=== PATIENT | female | born 1935 | race Caucasian/White ===

== ENCOUNTER 2018-06-02 03:33 | Inpatient (IN) ==
[2018-06-02] MEDS ORDERED: hydrALAZINE 20 MG/1 ML VIAL IV STA (04:20)
[2018-06-02 04:56] LABS: Basophils % 0.2 % (0.0-0.8); Hematocrit 38.7 VOL% (35.7-47.0); Hemoglobin 12.1 GM/DL (12.0-16.0); Immature Granulocytes % 0.2 %; Immature Granulocytes Absolute 0.02 #; Lymphocytes # 1.1 10*3/uL (1.4-4.0); Lymphocytes % 13.9 % (21.3-54.2); Mean Corpuscular HGB Conc 31.3 GM/DL (32-36); Mean Corpuscular Hemoglobin 25 PG (27-34); Mean Corpuscular Volume 80.3 FL (87-102); Mean Platelet Volume 10.8 FL (9.6-12.0); Monocytes # 0.3 10*3/uL (0.11-0.8); Monocytes % 3.2 % (1.7-12.7); Neutrophils # 6.7 10*3/uL (1.4-7.4); Neutrophils % 82.5 % (38.7-73.9); Platelet Count 149 T/CUMM (130-400); Red Blood Count 4.82 MC/CUMM (3.8-5.5); Red Cell Distribution Width 16.3 % (9.3-17.3); White Blood Count 8.2 T/CUMM (4-12)
[2018-06-02 05:05] LABS: Albumin 3.4 G/DL (3.4-5.0); Bilirubin,Total 0.4 MG/DL (0.2-1.0); Calcium 9.2 MG/DL (8.5-10.1); Osmolality,Calculated 273.8 MOS/KG (273-304); Potassium 4.1 MMOL/L (3.5-5.1); Total Protein 7.9 G/DL (6.4-8.3)
[2018-06-02 05:30] LABS: Lactic Acid 1.1 MMOL/L (0.4-2.0)
[2018-06-02] MEDS: ONDANSETRON 4 MG/2 ML VIAL IV PRN ×2 (05:59→18:31)
[2018-06-02] MEDS: DEXTROSE 5% LACTATED RINGERS 1,000 ML IV SCH ×3 (06:32→23:00)
[2018-06-03] MEDS ORDERED: hydrALAZINE 20 MG/1 ML VIAL ONE (07:39)
[2018-06-03] MEDS ORDERED: ceFAZolin 1,000 MG VIAL ONE (08:36)
[2018-06-03] MEDS ORDERED: BUPIVACAINE MPF 0.25% 30 ML VIAL ONE (09:30)
[2018-06-03] MEDS ORDERED: SUGAMMADEX 200 MG/2 ML VIAL IV ONE (09:31)
[2018-06-03] MEDS ORDERED: fentaNYL 100 MCG/2 ML VIAL ONE (09:52)
[2018-06-03] MEDS ORDERED: KETOROLAC 30 MG/1 ML VIAL ONE (09:54)
[2018-06-03] MEDS ORDERED: PROPOFOL 200 MG/20 ML VIAL IV ONE (09:54)
[2018-06-03] MEDS ORDERED: SEVOFLURANE 1 UNIT/15 MINUTE INH ONE (09:54)
[2018-06-03] MEDS ORDERED: ONDANSETRON 4 MG/2 ML VIAL ONE (09:54)
[2018-06-03] MEDS ORDERED: PHENYLEPHRINE 10 MG/1 ML VIAL IV ONE (09:54)
[2018-06-03] MEDS ORDERED: SUCCINYLCHOLINE 200 MG/10 ML VIAL ONE (09:55)
[2018-06-03] MEDS ORDERED: ROCURONIUM 100 MG/10 ML VIAL IV ONE (09:55)
[2018-06-03] MEDS ORDERED: ACETAMINOPHEN 1,000 MG/100 ML VIAL IV ONE (09:55)
[2018-06-03] MEDS ORDERED: GLYCOPYRROLATE 0.4 MG/2 ML VIAL ONE (09:55)
[2018-06-03] MEDS ORDERED: PHENYLEPHRINE 1 MG/10 ML SYRINGE IV ONE (09:55)
[2018-06-03] MEDS: DEXTROSE 5% LACTATED RINGERS 1,000 ML IV SCH ×2 (10:44→20:08)
[2018-06-03] MEDS: amLODIPine 5 MG TABLET PO SCH (10:44)
[2018-06-03] MEDS: DONEPEZIL 10 MG TABLET PO SCH (10:44)
[2018-06-04] MEDS: amLODIPine 5 MG TABLET PO SCH (08:58)
[2018-06-04] MEDS: DONEPEZIL 10 MG TABLET PO SCH (08:58)
[2018-06-04 10:05] LABS: Basophils % 0.4 % (0.0-0.8); Eosinophils # 0.1 10*3/uL (0.0-0.87); Eosinophils % 1.1 % (0.00-10.9); Hematocrit 31.4 VOL% (35.7-47.0); Immature Granulocytes % 0.5 %; Immature Granulocytes Absolute 0.04 #; Lymphocytes # 1.4 10*3/uL (1.4-4.0); Mean Corpuscular HGB Conc 31.5 GM/DL (32-36); Mean Corpuscular Hemoglobin 26 PG (27-34); Mean Corpuscular Volume 81.8 FL (87-102); Mean Platelet Volume 11.5 FL (9.6-12.0); Monocytes # 0.8 10*3/uL (0.11-0.8); Monocytes % 10.7 % (1.7-12.7); Neutrophils % 68.3 % (38.7-73.9); Red Cell Distribution Width 16.7 % (9.3-17.3); White Blood Count 7.3 T/CUMM (4-12)
[2018-06-04 10:07] LABS: Hemoglobin 9.9 GM/DL (12.0-16.0); Platelet Count 100 T/CUMM (130-400); Red Blood Count 3.84 MC/CUMM (3.8-5.5)
[2018-06-04 10:22] LABS: Calcium 7.8 MG/DL (8.5-10.1); Osmolality,Calculated 280.3 MOS/KG (273-304); Potassium 3.4 MMOL/L (3.5-5.1)
[2018-06-04 10:39] LABS: Anisocytosis 1+; Platelet Estimate Adequate
[2018-06-04] MEDS: DEXTROSE 5% NACL 0.45% 1,000 ML IV SCH (19:30)
[2018-06-05] MEDS: DEXTROSE 5% NACL 0.45% 1,000 ML IV SCH (03:38)
[2018-06-05 05:39] LABS: Basophils % 0.3 % (0.0-0.8); Eosinophils # 0.2 10*3/uL (0.0-0.87); Eosinophils % 2.2 % (0.00-10.9); Hematocrit 30.4 VOL% (35.7-47.0); Hemoglobin 9.7 GM/DL (12.0-16.0); Immature Granulocytes % 0.3 %; Immature Granulocytes Absolute 0.02 #; Lymphocytes # 1.3 10*3/uL (1.4-4.0); Lymphocytes % 18.6 % (21.3-54.2); Mean Corpuscular HGB Conc 31.9 GM/DL (32-36); Mean Corpuscular Hemoglobin 26 PG (27-34); Mean Corpuscular Volume 80.6 FL (87-102); Mean Platelet Volume 10.8 FL (9.6-12.0); Monocytes # 0.8 10*3/uL (0.11-0.8); Neutrophils # 4.8 10*3/uL (1.4-7.4); Neutrophils % 67.6 % (38.7-73.9); Platelet Count 133 T/CUMM (130-400); Red Blood Count 3.77 MC/CUMM (3.8-5.5); Red Cell Distribution Width 16.2 % (9.3-17.3); White Blood Count 7.2 T/CUMM (4-12)
[2018-06-05 05:43] LABS: Calcium 7.8 MG/DL (8.5-10.1); Osmolality,Calculated 275.5 MOS/KG (273-304); Potassium 3.1 MMOL/L (3.5-5.1)
[2018-06-05 05:54] LABS: Platelet Estimate Adequate
[2018-06-05 05:55] LABS: Polychromasia Few; Target Cells Few
[2018-06-05] MEDS: DONEPEZIL 10 MG TABLET PO SCH (14:20)
[2018-06-05] MEDS: amLODIPine 5 MG TABLET PO SCH (14:20)
[2018-06-05] MEDS: DEXT 5% NACL 0.45% KCL 20 MEQ 20 MEQ/1,000 ML BAG IV SCH (14:22)
[2018-06-05 15:28] LABS: Apearance,Urine CLEAR (Clear); Bacteria,Urine Occasional /HPF (Few); Bilirubin,Urine Negative (Negative); Blood, Urine Negative (Negative); Glucose,Urine (UA) Negative (Negative); Hyaline Casts,Urine 1 /LPF (0-3); Ketones,Urine Negative (Negative); Nitrite,Urine Negative (Negative); Protein,Urine Negative; RBC,Urine <1 /HPF (0-4); Urine Color Colorless (Yellow); Urine Specific Gravity 1.004 (1.001-1.035); Urine Urobilinogen < 2.0 EU/DL (0.2-1.0); WBC,Urine 1 /HPF (0-6)
[2018-06-06] MEDS: DEXT 5% NACL 0.45% KCL 20 MEQ 20 MEQ/1,000 ML BAG IV SCH ×3 (00:17→20:43)
[2018-06-06 06:05] LABS: Calcium 8.3 MG/DL (8.5-10.1); Osmolality,Calculated 268.1 MOS/KG (273-304); Potassium 3.4 MMOL/L (3.5-5.1)
[2018-06-06] MEDS: amLODIPine 5 MG TABLET PO SCH (10:36)
[2018-06-06] MEDS: DONEPEZIL 10 MG TABLET PO SCH (10:36)
[2018-06-06] MEDS ORDERED: MAGNESIUM SULF RIDER 2 GM in PREMIX 1 EACH IV PRN (14:01)
[2018-06-06] MEDS ORDERED: MAGNESIUM SULF RIDER 4 GM in PREMIX 1 EACH IV PRN (14:01)
[2018-06-06] MEDS: POTASSIUM CHLORIDE RIDER 10 MEQ in PREMIX 1 EACH IV PRN (22:40)
[2018-06-07] MEDS: POTASSIUM CHLORIDE RIDER 10 MEQ in PREMIX 1 EACH IV PRN ×2 (06:34→09:37)
[2018-06-07] MEDS: ONDANSETRON 4 MG/2 ML VIAL IV PRN (06:38)
[2018-06-07] MEDS: amLODIPine 5 MG TABLET PO SCH (08:16)
[2018-06-07] MEDS: DONEPEZIL 10 MG TABLET PO SCH (08:16)
[2018-06-07] MEDS: DEXT 5% NACL 0.45% KCL 20 MEQ 20 MEQ/1,000 ML BAG IV SCH ×2 (09:38→16:45)
[2018-06-07] MEDS ORDERED: GLUCAGON 1 MG VIAL IM PRN (14:28)
[2018-06-07] MEDS ORDERED: DEXTROSE 50% 25 GM/50 ML VIAL IV PRN (14:28)
[2018-06-07] MEDS ORDERED: DEXTROSE 10% 1,000 ML IV PRN (17:00)
[2018-06-07] MEDS ORDERED: MULTIVITAMIN INJ 10 ML, TRACE ELEMENTS (5) 1 ML in AMINO ACIDS/DEXT/LYTES 5-15% 2,000 ML IV SCH (17:00)
[2018-06-07] MEDS: INSULIN REGULAR 100 UNIT/ML SUBCUT SCH (17:29)
[2018-06-07] MEDS: PANTOPRAZOLE 40 MG VIAL IV SCH (21:07)
[2018-06-08] MEDS: INSULIN REGULAR 100 UNIT/ML SUBCUT SCH ×5 (00:41→23:03)
[2018-06-08] MEDS: DEXT 5% NACL 0.45% KCL 20 MEQ 20 MEQ/1,000 ML BAG IV SCH ×5 (02:03→23:02)
[2018-06-08 05:21] LABS: Prealbumin 8.4 MG/DL (20-40)
[2018-06-08] MEDS ORDERED: LIDOCAINE 100 MG/5 ML SYRINGE ONE (09:00)
[2018-06-08] MEDS ORDERED: PROPOFOL 200 MG/20 ML VIAL IV ONE (09:00)
[2018-06-08] MEDS ORDERED: METOCLOPRAMIDE 10 MG/2 ML VIAL IV SCH (12:00)
[2018-06-08] MEDS ORDERED: FAT EMULSION 20% 250 ML IV SCH (14:00)
[2018-06-08] MEDS: PANTOPRAZOLE 40 MG VIAL IV SCH ×2 (17:15→21:40)
[2018-06-08] MEDS: MULTIVITAMIN INJ 10 ML, TRACE ELEMENTS (5) 1 ML in AMINO ACIDS/DEXT/LYTES 5-15% 2,000 ML IV SCH (19:52)
[2018-06-08] MEDS: DONEPEZIL 10 MG TABLET PO SCH (19:53)
[2018-06-08] MEDS: amLODIPine 5 MG TABLET PO SCH (19:53)
[2018-06-08] MEDS: METOCLOPRAMIDE 5 MG TABLET PO SCH ×2 (19:56→23:03)
[2018-06-09] MEDS: INSULIN REGULAR 100 UNIT/ML SUBCUT SCH ×3 (06:24→18:15)
[2018-06-09] MEDS: METOCLOPRAMIDE 5 MG TABLET PO SCH ×3 (06:25→18:16)
[2018-06-09] MEDS: amLODIPine 5 MG TABLET PO SCH (10:33)
[2018-06-09] MEDS: DONEPEZIL 10 MG TABLET PO SCH (10:34)
[2018-06-09] MEDS: PANTOPRAZOLE 40 MG VIAL IV SCH ×2 (10:34→20:54)
[2018-06-09] MEDS: MULTIVITAMIN INJ 10 ML, TRACE ELEMENTS (5) 1 ML in AMINO ACIDS/DEXT/LYTES 5-15% 2,000 ML IV SCH (18:15)
[2018-06-10] MEDS: INSULIN REGULAR 100 UNIT/ML SUBCUT SCH ×2 (00:07→05:24)
[2018-06-10] MEDS: METOCLOPRAMIDE 5 MG TABLET PO SCH ×4 (00:08→17:27)
[2018-06-10] MEDS: amLODIPine 5 MG TABLET PO SCH (09:16)
[2018-06-10] MEDS: DONEPEZIL 10 MG TABLET PO SCH (09:16)
[2018-06-10] MEDS: PANTOPRAZOLE 40 MG VIAL IV SCH ×2 (09:16→21:13)
[2018-06-10] MEDS: DEXT 5% NACL 0.45% KCL 20 MEQ 20 MEQ/1,000 ML BAG IV SCH (13:27)
[2018-06-10 16:37] LABS: Apearance,Urine CLEAR (Clear); Bilirubin,Urine Negative (Negative); Blood, Urine Negative (Negative); Glucose,Urine (UA) Negative (Negative); Ketones,Urine Negative (Negative); Mucus,Urine Occasional /LPF (Occasional); Nitrite,Urine Negative (Negative); Protein,Urine Negative; RBC,Urine 1 /HPF (0-4); Squamous Epithelial Cell,Urine Occasional /HPF (0-10); Urine Color Yellow (Yellow); Urine Specific Gravity 1.013 (1.001-1.035); Urine Urobilinogen < 2.0 EU/DL (0.2-1.0); WBC,Urine 3 /HPF (0-6)
[2018-06-11] MEDS: METOCLOPRAMIDE 5 MG TABLET PO SCH ×4 (00:30→20:18)
[2018-06-11 06:21] LABS: Calcium 8.6 MG/DL (8.5-10.1); Osmolality,Calculated 269.1 MOS/KG (273-304); Potassium 3.9 MMOL/L (3.5-5.1)
[2018-06-11 06:34] LABS: Prealbumin 10.9 MG/DL (20-40)
[2018-06-11] MEDS: PANTOPRAZOLE 40 MG VIAL IV SCH (09:49)
[2018-06-11] MEDS: DONEPEZIL 10 MG TABLET PO SCH (09:49)
[2018-06-11] MEDS: amLODIPine 5 MG TABLET PO SCH (09:49)
[2018-06-11 11:39] VITALS: BP 157/73
== END 2018-06-11 14:20 | disposition home health service (06) | DRG 352 ==
LOC: EDUNIT# → EDBD → N.ED 03:33 → N.EDINP 04:20 → N.3E 05:27
PROVIDERS: ADMIT Surgery; ATTEND Surgery